=== PATIENT | female | born 1935 | race Caucasian/White ===

== ENCOUNTER 2017-05-19 07:41 | Outpatient (CLI) | payer OTHER | END 2017-05-19 14:40 | disposition home or self-care (01) | LOC: RX STUDY 07:41 | DX: R10.13 Epigastric pain (principal) ==

== ENCOUNTER 2017-06-05 13:00 | Outpatient (CLI) | payer OTHER | END 2017-06-05 13:08 | disposition home or self-care (01) | LOC: LAB 13:00 | DX: D13.4 Benign neoplasm of liver (principal) ==

== ENCOUNTER 2017-06-06 07:42 | Outpatient (CLI) | payer OTHER | END 2017-06-06 07:52 | disposition home or self-care (01) | LOC: TOM 07:42 | DX: D13.4 Benign neoplasm of liver (principal) | CPT/HCPCS: 74170; Q9965 ==

== ENCOUNTER 2017-06-16 08:08 | Outpatient (CLI) | payer OTHER | END 2017-06-16 17:00 | disposition home or self-care (01) | LOC: MRI 08:08 | DX: C22.1 Intrahepatic bile duct carcinoma (principal); K76.89 Other specified diseases of liver; D50.0 Iron deficiency anemia secondary to blood loss (chronic); Q27.33 Arteriovenous malformation of digestive system vessel; K83.8 Other specified diseases of biliary tract | CPT/HCPCS: 74183; A9579; 74181 ==

== ENCOUNTER 2017-12-02 08:05 | Outpatient (CLI) | payer OTHER | END 2017-12-02 17:00 | disposition home or self-care (01) | LOC: TOM 08:05 | DX: D50.0 Iron deficiency anemia secondary to blood loss (chronic) (principal); Q27.33 Arteriovenous malformation of digestive system vessel; C24.0 Malignant neoplasm of extrahepatic bile duct ==

== ENCOUNTER 2018-03-16 07:37 | Outpatient (CLI) | payer OTHER | END 2018-03-16 07:42 | disposition home or self-care (01) | LOC: LAB 07:37 | DX: D50.0 Iron deficiency anemia secondary to blood loss (chronic) (principal); Q27.33 Arteriovenous malformation of digestive system vessel; C24.0 Malignant neoplasm of extrahepatic bile duct; I11.9 Hypertensive heart disease without heart failure; E78.1 Pure hyperglyceridemia; E11.40 Type 2 diabetes mellitus with diabetic neuropathy, unspecified ==

== ENCOUNTER 2018-03-16 08:12 | Outpatient (CLI) | payer OTHER | END 2018-03-16 17:00 | disposition home or self-care (01) | LOC: TOM 08:12 | DX: D50.0 Iron deficiency anemia secondary to blood loss (chronic) (principal); Q27.33 Arteriovenous malformation of digestive system vessel; C24.0 Malignant neoplasm of extrahepatic bile duct ==

== ENCOUNTER 2018-06-15 07:59 | Outpatient (CLI) | payer OTHER | END 2018-06-15 13:49 | disposition home or self-care (01) | LOC: LAB 07:59 → TOM 08:45 → LAB 13:49 | DX: D50.0 Iron deficiency anemia secondary to blood loss (chronic) (principal); Q27.33 Arteriovenous malformation of digestive system vessel; C24.0 Malignant neoplasm of extrahepatic bile duct ==

== ENCOUNTER 2018-06-15 09:02 | Outpatient (CLI) | payer OTHER | END 2018-06-15 17:00 | disposition home or self-care (01) | LOC: TOM 09:02 | DX: D50.0 Iron deficiency anemia secondary to blood loss (chronic) (principal); Q27.33 Arteriovenous malformation of digestive system vessel; C24.0 Malignant neoplasm of extrahepatic bile duct ==

== ENCOUNTER 2018-07-06 11:59 | Outpatient (CLI) | payer OTHER ==
[2018-07-08] MEDS ORDERED: TORADOL60 MG IM (10:56)
[2018-07-08] MEDS ORDERED: GABAPENTIN800 MG PO (10:56)
[2018-07-08] MEDS ORDERED: PERCOCET 5-3251 EACH PO (10:56)
[2018-07-08] MEDS ORDERED: ORPHENADRI30 MG/1 M1 IM (10:56)
== END 2018-07-06 17:00 | disposition home or self-care (01) ==
LOC: RAD 11:59
DX: M54.31 Sciatica, right side (principal); M54.32 Sciatica, left side

== ENCOUNTER 2018-07-09 08:44 | Outpatient (CLI) | payer OTHER ==
[~2018-07-09 08:44] MED LIST changes: -CAPECITABINE500 MG; -ONDANSETRON ODT8 MG
== END 2018-07-09 17:00 | disposition home or self-care (01) ==
LOC: MRI 08:44
DX: M54.17 Radiculopathy, lumbosacral region (principal); M54.31 Sciatica, right side
CPT/HCPCS: 72148

== ENCOUNTER → 2018-07-09 | Outpatient (CLI) | payer OTHER ==
[~2018-07-09] MED LIST: CAPECITABINE500 MG; GABAPENTIN800 MG PO; ONDANSETRON ODT8 MG; ORPHENADRI30 MG/1 M1 IM; PERCOCET 5-3251 EACH PO; TORADOL60 MG IM
== END | disposition home or self-care (01) ==
LOC: NUCLEAR 07:30
DX: R97.1 Elevated cancer antigen 125 [CA 125] (principal); M54.5 Low back pain
CPT/HCPCS: 78306; 78320; A9503

== ENCOUNTER 2018-07-14 18:02 | Emergency (ER) | payer OTHER ==
[~2018-07-14] VITALS: Ht 157.5 cm; Wt 71.7 kg
[2018-07-14] MEDS ORDERED: ONDANSETRON ODT8 MG (18:57)
[2018-07-14] MEDS ORDERED: CAPECITABINE500 MG (18:57)
== END 2018-07-15 12:59 | disposition home or self-care (01) ==
LOC: ER 18:02
DX: M54.5 Low back pain (principal)

== ENCOUNTER → 2018-07-22 | Outpatient (CLI) | payer OTHER ==
[~2018-07-22] MED LIST changes: +CAPECITABINE500 MG; +ONDANSETRON ODT8 MG
== END | disposition home or self-care (01) ==
LOC: RAD 07:49
DX: M16.11 Unilateral primary osteoarthritis, right hip (principal); Z96.651 Presence of right artificial knee joint

== ENCOUNTER 2018-10-13 10:58 | Outpatient (CLI) | payer OTHER | END 2018-10-13 11:02 | disposition home or self-care (01) | LOC: LAB 10:58 | DX: C24.0 Malignant neoplasm of extrahepatic bile duct (principal); D50.0 Iron deficiency anemia secondary to blood loss (chronic); I30.8 Other forms of acute pericarditis ==

== ENCOUNTER → 2018-10-14 | Outpatient (CLI) | payer OTHER | END | disposition home or self-care (01) | LOC: TOM 07:08 | DX: D50.0 Iron deficiency anemia secondary to blood loss (chronic) (principal); Q27.33 Arteriovenous malformation of digestive system vessel; C24.0 Malignant neoplasm of extrahepatic bile duct | CPT/HCPCS: 74177; Q9965 ==

== ENCOUNTER 2019-09-20 10:03 | Outpatient (CLI) | payer OTHER | END 2019-09-20 11:00 | disposition home or self-care (01) | LOC: MRI 10:03 | PROVIDERS: ATTEND Internal Medicine Hematology & Oncology | DX: M51.27 Other intervertebral disc displacement, lumbosacral region (principal); M51.17 Intervertebral disc disorders with radiculopathy, lumbosacral region | CPT/HCPCS: 72148 ==

== ENCOUNTER → 2020-10-10 | Outpatient (CLI) | payer OTHER | END | disposition home or self-care (01) | LOC: RAD 10:16 | PROVIDERS: ATTEND Ophthalmology | DX: R07.89 Other chest pain (principal); I10 Essential (primary) hypertension ==

== ENCOUNTER → 2020-11-01 09:14 | Outpatient (CLI) | payer OTHER | END | disposition home or self-care (01) | LOC: MRI 09:14 | PROVIDERS: ATTEND Orthopaedic Surgery | DX: M48.061 Spinal stenosis, lumbar region without neurogenic claudication (principal); M54.5 Low back pain | CPT/HCPCS: 72148 ==

== ENCOUNTER 2021-03-22 08:00 | Outpatient (CLI) | payer OTHER | END 2021-03-22 08:30 | disposition home or self-care (01) | LOC: PPH VACUNA 08:00 | PROVIDERS: ATTEND Emergency Medicine Pediatric Emergency Medicine | DX: Z23 Encounter for immunization (principal) ==